=== PATIENT | male | born 1970 | race Caucasian/White ===

== ENCOUNTER 2016-11-26 16:06 | Emergency (ER) | payer SELFPAY ==
[2016-11-26 16:07] VITALS: BMI 27.7
[2016-11-26 16:41] VITALS: BP 121/74; PULSE 70; RESP 16; TEMP 98.3; O2SAT 99
[2016-11-26] MEDS ORDERED: Lidocaine 2% Inj (20ml) ONE (17:46)
--- NOTE | 2016-11-26 19:00 | C.PDOC ---
History Of Present Illness 46 year old male presents to the ED for re-evaluation of right middle finger pain and swelling which gradually developed over the past 4 days. He states the pain is localized, gradually worsen. Patient admits, was just evaluated at [facility] prior to arrival and decided to sign out against medical advice because they did not have a hand specialist on-call. Pt sts, recived blood work, imaging and abx tx at [place]. Pt has discharge papers with him including Rx: Bactrim, keflex. Pt denies deformity to finger, weakness, sensorivascular deficits, known trauma/injury to affected area. Ambulate to Ed for evaluation, not in any apparent distress. Time Seen by Provider: 11/26/16 16:37 Chief Complaint (Nursing): Abnormal Skin Integrity History Per: Patient History/Exam Limitations: no limitations Onset/Duration Of Symptoms: Days (4), Gradual Current Symptoms Are (Timing): Still Present Location Of Injury: Right: Hand (middle finger) Quality Of Symptoms: Painful Additional History Per: Patient Past Medical History Reviewed: Historical Data, Nursing Documentation, Vital Signs Vital Signs: Last Vital Signs Temp 98.3 F 11/26/16 16:40 Pulse 70 11/26/16 16:40 Resp 16 11/26/16 16:40 BP 121/74 11/26/16 16:40 Pulse Ox 99 11/27/16 21:04 - Medical History PMH: CAD, HTN Surgical History: Appendectomy - [facility] Procedures IMMOBILIZ/WOUND ATTN NEC (03/06/02) INJECT/INFUSE NEC (06/26/12) OTHER APPENDECTOMY (11/19/04) OTHER NEUROPLASTY (04/06/98) Family History: States: Unknown Family Hx - Social History Hx Tobacco Use: Yes Hx Alcohol Use: Yes Hx Substance Use: Yes Review Of Systems Musculoskeletal: Positive for: Hand Pain (right middle finger) Neurological: Negative for: Weakness, Numbness Physical Exam - Physical Exam Appears: Non-toxic, No Acute Distress Skin: Normal Color, Warm, Dry Eye(s): bilateral: PERRL Extremity: Normal ROM, Capillary Refill (less than 2 seconds ), No Deformity, Other (significant edema, erythema and fluctuance to palmar aspect right 3rd distal phalanx. no proximal streaking ) Neurological/Psych: Oriented x3, Normal Speech, Normal Cognition, Normal Motor, Normal Sensation, Normal Reflexes ED Course And Treatment O2 Sat by Pulse Oximetry: 99 (on RA) Pulse Ox Interpretation: Normal Progress Note: Review records from patient's visit at [facility] earlier today. Patient had bloodwork done, received Vancomycin and underwent XR which showed no evidence of osteomyelitis. Case discussed with [id number] Dr. Lozano, who recommended incision and drainage of abscess with help of residential program worker. associate vice president was paged and evaluated patient at bedside. Resident discussed case with DR. Lozano over the phone and procedure expalined to resident. ABscess I&D performed by residential program worker. Post-procedural case was discussed with again, advised to take antibiotics prescribed pt at [facility] and is advised to follow up with Dr. Lozano on 11/28 for further evaluation. CXR ordered and reviewed. Patient received Abluterol INH, Zithromax PO, and Prednisone PO. On re-eval, pt is afebrile, hemodynamicaly stable. Non-toxic. Pt reports, " feels much better". Right hand: s/p I&D middle finger FAM mclean, no neurovascular deficits. WOund covered by request with sterile dressing. Pt advised to f/u with in 2 days for re-eval.and wound check. return to ED if unable to F/u with hand specialist or any worsening or new changes. Disposition Counseled Patient/Family Regarding: Diagnosis, Need For Followup - Disposition Referrals: Laura Lozano MD [Staff Provider] - Disposition: HOME/ ROUTINE Disposition Time: 18:58 Condition: STABLE Additional Instructions: TAKE MEDICATION ANTIBIOTIC THAT WAS GIVEN AT [facility] AND PRESCRIBED FOLLOW UP WITH DR. LOZANO ON Monday11/28/16 FOR FURTHER EVALUATION AND TREATMENT. RETURN TO ED AT ANY TIME IF ANY WORSENING OR NEW CHANGES. Instructions: Abscess (ED) Forms: [employer] (Chinese) - Clinical Impression Clinical Impression: Jonathan Mclean - PA / OSTEOPATHIC MEDICINE TEACHER / Resident Statement MD/DO has reviewed & agrees with the documentation as recorded. - Scribe Statement The provider has reviewed the documentation as recorded by the Scribe (Steffanie Guillen) All medical record entries made by the Scribe were at my direction and personally dictated by me. I have reviewed the chart and agree that the record accurately reflects my personal performance of the history, physical exam, medical decision making, and the department course for this patient. I have also personally directed, reviewed, and agree with the discharge instructions and disposition.
--- NOTE | 2016-12-08 14:14 | CP.PCM.CON ---
History of Present Illness - History of Present Illness History of Present Illness: Procedure note Hand Surgery- Dr. Graves Procedure - Incision and Drainage of right middle finger Resident - Estuardo Winchester PGY1 Attending - Dr. Graves Patient positioned appropriately, 5cc lidocaine without epinephrine was used as a local anesthetic nerve block. #11 blade scalpal used for single incision. Additional local anesthetic injected into surrounding viable tissue prior to blunt dissection of loculated adhesions. Copius drainage of pus (culture obtained). Wound was irrigated and wrapped in a sterile fashion without packing put in. Procedure tolerated without complications. Wound dressed with sterile 4x4 guaze, Krilex and paper tape. Past Patient History - Past Social History Smoking Status: Current Some Days Smoker - CARDIAC Hx Hypertension: Yes - PULMONARY Hx Respiratory Disorders: No - NEUROLOGICAL Hx Neurological Disorder: No - HEENT Hx HEENT Problems: No - RENAL Hx Chronic Kidney Disease: No - ENDOCRINE/METABOLIC Hx Endocrine Disorders: No - HEMATOLOGICAL/ONCOLOGICAL Hx Blood Disorders: No - INTEGUMENTARY Hx Dermatological Problems: No - MUSCULOSKELETAL/RHEUMATOLOGICAL Hx Musculoskeletal Disorders: No - GASTROINTESTINAL Other/Comment: AP - GENITOURINARY/GYNECOLOGICAL Hx Genitourinary Disorders: No - PSYCHIATRIC Hx Substance Use: Yes - SURGICAL HISTORY Hx Appendectomy: Yes - ANESTHESIA Hx Anesthesia: Yes Meds Allergies/Adverse Reactions: Allergies Allergy/AdvReac Type Severity Reaction Status Date / Time No Known Allergies Allergy Verified 11/26/16 16:41 Results - Vital Signs Recent Vital Signs: Last Vital Signs Temp 98.3 F 11/26/16 16:40 Pulse 70 11/26/16 16:40 Resp 16 11/26/16 16:40 BP 121/74 11/26/16 16:40 Pulse Ox 99 11/27/16 21:05
== END 2016-11-26 19:49 | disposition home or self-care (01) ==
LOC: C.ER 16:06
DX: L03.011 Cellulitis of right finger (principal); L02.511 Cutaneous abscess of right hand

== ENCOUNTER 2016-12-07 06:47 | Emergency (ER) | payer SELFPAY ==
[2016-12-07 06:47] VITALS: BMI 27.7
[2016-12-07 06:57] VITALS: RESP 18
[2016-12-07] MEDS ORDERED: Lidocaine 1% Inj (20ml) ONE (07:14)
[2016-12-07] MEDS ORDERED: Lidocaine 1% Inj (20ml) INFIL ONE (07:25)
[2016-12-07] MEDS ORDERED: Tmp-Smz 800 mg-160 mg DS Tab PO STA (07:43)
[2016-12-07] MEDS ORDERED: Tmp-Smz 800 mg-160 mg DS Tab ONE (07:49)
--- NOTE | 2016-12-07 07:52 | C.PDOC ---
History Of Present Illness 46 y/o male presents to ED with complaints of recurrent swelling and pain to right middle finger. Patient was seen at ED on 11/26/16 for abscess to right middle digit and had an I&D procedure. Patient was discharged with Bactrim that was not filled as per patient. Patient denies fever, numbness or any other complaints at this time. Time Seen by Provider: 12/07/16 07:06 Chief Complaint (Nursing): Finger,Hand,&Wrist History Per: Patient History/Exam Limitations: no limitations Onset/Duration Of Symptoms: Days Current Symptoms Are (Timing): Still Present Quality: "Pain" Past Medical History Reviewed: Historical Data, Nursing Documentation, Vital Signs Vital Signs: Last Vital Signs Temp 97.8 F 12/07/16 06:55 Pulse 63 12/07/16 06:55 Resp 18 12/07/16 06:55 BP 147/82 12/07/16 06:55 Pulse Ox 99 12/07/16 08:19 - Medical History PMH: CAD, HTN Surgical History: Appendectomy - [facility] Procedures IMMOBILIZ/WOUND ATTN NEC (03/06/02) INJECT/INFUSE NEC (06/26/12) OTHER APPENDECTOMY (11/19/04) OTHER NEUROPLASTY (04/06/98) Family History: States: No Known Family Hx - Social History Hx Tobacco Use: Yes Hx Alcohol Use: Yes Hx Substance Use: No Review Of Systems Constitutional: Negative for: Fever, Chills Respiratory: Negative for: Shortness of Breath Musculoskeletal: Positive for: Hand Pain Skin: Negative for: Rash Neurological: Negative for: Weakness, Numbness Physical Exam - Physical Exam Appears: Non-toxic, No Acute Distress Skin: Warm, Dry, Other (Tense fluctuant abscess to the ulnar aspect of right middle digit. +pain and tender to palpation) Head: Atraumatic, Normacephalic Oral Mucosa: Moist Neck: Normal ROM, Supple Chest: Symmetrical Extremity: Capillary Refill (<2 seconds), No Deformity Extremity: Bilateral: Normal ROM Pulses: Left Radial: Normal, Right Radial: Normal Neurological/Psych: Oriented x3, Normal Motor, Normal Sensation ED Course And Treatment O2 Sat by Pulse Oximetry: 99 (RA) Pulse Ox Interpretation: Normal - Incision & Drainage Of Abscess Anesthesia: Lidocaine 1% Prep Used: Sterile Water, Betadine Procedure: Incised W/Scalpel Blade#: (#11 blade- 1cm incision made to fluctuant area of right middle finger), Drained Pus, Packed W/Gauze (and sterile dressing applied), Cultures Obtained And Sent To Lab Medical Decision Making Medical Decision Making: Impression: Digital Abscess Plan: I&D procedure tolerated will by patient Patient advised to follow up with community clinic tomorrow for removal of packing and wound check. Patient discharged with Bactrim prescription and given 5$ to fill prescription. Disposition - Disposition Referrals: [facility] [Outside] Disposition: HOME/ ROUTINE Disposition Time: 08:22 Condition: GOOD Additional Instructions: go to clinic tomorrow for wound check and packing removal Prescriptions: Sulfamethoxazole/Trimethoprim [Bactrim DS 800 mg-160 mg] 1 tab PO BID #14 tab Instructions: Abscess (ED) Forms: [employer] (Omani) Print Language: CHINESE - Clinical Impression Clinical Impression: Abscess - Scribe Statement The provider has reviewed the documentation as recorded by the Maryibamadou Burden All medical record entries made by the Maryibamadou were at my direction and personally dictated by me. I have reviewed the chart and agree that the record accurately reflects my personal performance of the history, physical exam, medical decision making, and the department course for this patient. I have also personally directed, reviewed, and agree with the discharge instructions and disposition.
[2016-12-07 08:30] VITALS: BP 116/74; PULSE 74; TEMP 78; O2SAT 98
== END 2016-12-07 08:35 | disposition home or self-care (01) ==
LOC: C.ER 06:47
DX: L02.511 Cutaneous abscess of right hand (principal)

== ENCOUNTER 2016-12-08 14:49 | Emergency (ER) | payer MEDICAID ==
[2016-12-08 14:49] VITALS: BMI 27.7
[2016-12-08 14:55] VITALS: BP 118/71; TEMP 97.8; O2SAT 98
--- NOTE | 2016-12-08 15:25 | C.PDOC ---
History Of Present Illness 46 y/o male presents to ED for wound check s/p I&D to right 3rd finger. Patient had initial I&D on 10/3016 and repeated on 12/07. Patient states he was advised to follow up in clinic today "but no one was answering so i came to ED". Patient is noncompliant with antibiotics given on 11/26 but states he has filled prescriptions since ED visit on 12/07 and had first dose yesterday. No new symptoms since prior evaluation or other complaints at this time. FOR WOUND CHECK S/P I&D R 3 FINGER. INITIAL I&D 11/26/16 AND REPEATED 12/07. PS WAS ADVISED TO FU IN CLINIC TODAY "BUT NO ONE WAS ANSWERING SO I CAME TO THE ER ". NO NEW SX SINCE PRIOR EVAL. PT NONCOMPLIANT W ABX RX GIVEN ON 11/26 BUT STATES HAS FILLED RX SINCE ER VISIT 12/07, SP 1ST DOSE YESTERDAY EXAM NAD SKIN R [address] PAD R 3 FINGER W PERSIST PURULENT DC. NO LYMPHANGITIS, ERYTHEMA NEURO INTACT Time Seen by Provider: 12/08/16 15:10 Chief Complaint (Nursing): Wound Check History Per: Patient History/Exam Limitations: no limitations Onset/Duration Of Symptoms: Days Ago Current Symptoms Are (Timing): Still Present Location Of Injury: Right: Hand Quality Of Symptoms: denies: Painful, Swollen Past Medical History Reviewed: Historical Data, Nursing Documentation, Vital Signs Vital Signs: Last Vital Signs Temp 97.8 F 12/08/16 14:54 Pulse 64 12/08/16 14:54 Resp 20 12/08/16 14:54 BP 118/71 12/08/16 14:54 Pulse Ox 98 12/08/16 16:02 - Medical History PMH: CAD, HTN Surgical History: Appendectomy - [facility] Procedures IMMOBILIZ/WOUND ATTN NEC (03/06/02) INJECT/INFUSE NEC (06/26/12) OTHER APPENDECTOMY (11/19/04) OTHER NEUROPLASTY (04/06/98) Family History: States: No Known Family Hx - Social History Hx Tobacco Use: Yes Hx Alcohol Use: Yes Hx Substance Use: No - Immunization History Hx Tetanus Toxoid Vaccination: No Hx Influenza Vaccination: No Hx Pneumococcal Vaccination: No Review Of Systems Constitutional: Negative for: Fever, Chills Gastrointestinal: Negative for: Nausea, Vomiting Musculoskeletal: Negative for: Hand Pain Skin: Negative for: Rash Neurological: Negative for: Weakness, Numbness Physical Exam - Physical Exam Appears: No Acute Distress Skin: Warm, Dry, Other (Right 3rd finger packing in place, PAD right finger w/ persistent purulent discharge. No lymphangitis, No erythema) Head: Normacephalic Eye(s): bilateral: Normal Inspection Oral Mucosa: Moist Neck: Normal ROM, Supple Chest: Symmetrical Extremity: Normal ROM, Capillary Refill (<2 seconds), No Deformity Pulses: Left Radial: Normal, Right Radial: Normal Neurological/Psych: Oriented x3, Normal Motor, Normal Sensation ED Course And Treatment O2 Sat by Pulse Oximetry: 98 (RA) Pulse Ox Interpretation: Normal Progress - Re-Evaluation Re-evaluation Note: 12/08/16 15:25 D/W SURG RESIDENT DR OLVERA will EVAL IN ER 12/08/16 16:52 S/P RESIDENT WOUND REEXPLORATION AND REPACKING. INFO GIVEN FOR KALINA LOZANO AND LEILANI FOR OFFICE FU. - Data Reviewed Data Reviewed: Old records Disposition Counseled Patient/Family Regarding: Diagnosis, Need For Followup - Disposition Referrals: Clinic,Med Surg [Primary Care Provider] - Terrence Collins MD [Staff Provider] - Laura Lozano MD [Staff Provider] - Disposition: HOME/ ROUTINE Disposition Time: 16:53 Condition: IMPROVED Instructions: Abscess Follow-up (ED) Forms: [facility] (Prydeinig) - Clinical Impression Clinical Impression: Abscess re-check - Scribe Statement The provider has reviewed the documentation as recorded by the Scribamadou Burden All medical record entries made by the Maryibamadou were at my direction and personally dictated by me. I have reviewed the chart and agree that the record accurately reflects my personal performance of the history, physical exam, medical decision making, and the department course for this patient. I have also personally directed, reviewed, and agree with the discharge instructions and disposition.
[2016-12-08] MEDS ORDERED: Lidocaine 1% Inj (20ml) ONE (16:10)
[2016-12-08 17:17] VITALS: PULSE 68; RESP 18
== END 2016-12-08 17:00 | disposition home or self-care (01) ==
LOC: C.ER 14:49 → SUPCPDRO 14:49 → C.ER 17:00
DX: Z48.00 Encounter for change or removal of nonsurgical wound dressing (principal)

== ENCOUNTER 2016-12-09 15:39 | Observation (INO) | payer MEDICAID ==
[2016-12-09 15:40] VITALS: BMI 27.7
[2016-12-09] MEDS ORDERED: Lidocaine 2% Inj (20ml) INFIL ONE (16:11)
[2016-12-09] MEDS ORDERED: Lidocaine 2% Inj (20ml) ONE (16:14)
--- NOTE | 2016-12-09 16:33 | C.PDOC ---
History Of Present Illness 46 yo male return to ED for re-evaluation of Right middle finger abscess/felon that was I&D here in ED few times: , 12/07 and 12/08. Pt reports, pain is worsen since yesterday. Pt sts, went to clinic and was sent to ED for admission " fail outpt treatment". Pt admits, take abx for past 2 days only, was non-complaint before. Otherwise, pt denies fever, chills, denies weakness, sensory or vascular deficits to Right hand. Ambulate to Ed appears in pain. Time Seen by Provider: 12/09/16 15:57 Chief Complaint (Nursing): Finger,Hand,&Wrist History Per: Patient History/Exam Limitations: no limitations Past Medical History Reviewed: Historical Data, Nursing Documentation, Vital Signs Vital Signs: Last Vital Signs Temp 99.1 F 12/09/16 19:14 Pulse 56 L 12/09/16 19:14 Resp 20 12/09/16 19:14 BP 119/77 12/09/16 19:14 Pulse Ox 96 12/09/16 19:14 - Medical History PMH: CAD, HTN Surgical History: Appendectomy - [facility] Procedures IMMOBILIZ/WOUND ATTN NEC (03/06/02) INJECT/INFUSE NEC (06/26/12) OTHER APPENDECTOMY (11/19/04) OTHER NEUROPLASTY (04/06/98) Family History: States: No Known Family Hx - Social History Hx Tobacco Use: Yes Hx Alcohol Use: Yes Hx Substance Use: No - Immunization History Hx Tetanus Toxoid Vaccination: No Hx Influenza Vaccination: No Hx Pneumococcal Vaccination: No Review Of Systems Except As Marked, All Systems Reviewed And Found Negative. Constitutional: Negative for: Fever, Chills Skin: Positive for: Other ((+) Right middle finger abscess) Neurological: Negative for: Weakness, Numbness Physical Exam - Physical Exam Appears: Well, No Acute Distress Skin: Normal Color, Warm, Dry, Other (see extr exam) Eye(s): bilateral: PERRL Nose: No Discharge Oral Mucosa: Moist Throat: No Erythema, No Exudate Neck: Supple Cardiovascular: Rhythm Regular Respiratory: No Decreased Breath Sounds, No Accessory Muscle Use, No Stridor, No Wheezing Gastrointestinal/Abdominal: Soft, No Tenderness, No Distention, No Guarding Back: No CVA Tenderness, No Vertebral Tenderness Extremity: Normal ROM (Right hand), Tenderness (severe tenderness around finger pulp insicion Right 3rd distal phalanx with inserted packin, dry, clean, no draining, mod soft tissue edema. No lymphagitis, no erythema.), Capillary Refill (less than 2sec to Right middle finger), No Deformity Neurological/Psych: Oriented x3, Normal Speech, Normal Cognition, Normal Motor, Normal Sensation, Normal Reflexes ED Course And Treatment - Laboratory Results Result Diagrams: 12/09/16 17:17 12/09/16 17:17 O2 Sat by Pulse Oximetry: 100 (RA) Pulse Ox Interpretation: Normal Progress Note: medihoney. Case discussed with , [id number], who was involved in pt care initially on 11/26/16, unfortunately pt never follow up with . As per recommendation, Right 3rd finger soaked, packing removed, wound irrigated, closed with sterile dressing. Blood work order, abx given.Admission to Hospital service OBS with in patent consult recommend. Hospitalist aware of admission. Medical Decision Making Medical Decision Making: PLAN: * X-Ray - Right hand, 3rd Digit * CBC * BMP * Solumedrol IVP * Rocephin IVPB * Vancomysin IVPB * Sodium Chloride IV Disposition - Disposition Disposition: HOSPITALIZED Disposition Time: 17:33 Condition: STABLE - Clinical Impression Clinical Impression: Felon - PA / INSTRUCTIONAL SERVICES SPECIALIST / Resident Statement MD/DO has reviewed & agrees with the documentation as recorded. - Scribe Statement The provider has reviewed the documentation as recorded by the Scribe Marj Kat All medical record entries made by the Maryuri were at my direction and personally dictated by me. I have reviewed the chart and agree that the record accurately reflects my personal performance of the history, physical exam, medical decision making, and the department course for this patient. I have also personally directed, reviewed, and agree with the discharge instructions and disposition.
[2016-12-09] MEDS ORDERED: Sodium Chloride 0.9% 500 ML IV ONE (16:39)
[2016-12-09] MEDS ORDERED: cefTRIAXone IV 1 gm in Dextros 50 ML IVPB ONE (16:58)
[2016-12-09] MEDS ORDERED: Vancomycin 1 GM 1 GM/250 ML BAG IVPB ONE (17:19)
[2016-12-09 17:24] LABS: BASO # 0.1 K/uL (0.0-0.2); BASO % 0.9 % (0.0-2.0); EOS # 0.3 K/uL (0.0-0.7); EOS % 3.5 % (0.0-4.0); HEMATOCRIT 41.3 % (35.0-51.0); LYMPH % 26.3 % (20.0-40.0); MEAN CELL VOLUME 92.1 fL (80.0-94.0); MEAN CORPUSCULAR HGB CONC 33.7 g/dL (33.0-37.0); MEAN PLATELET VOLUME 9.7 fL (7.2-11.7); MONO # 0.5 K/uL (0.0-0.8); MONO % 6.8 % (0.0-10.0); RED CELL DISTRIBUTION WIDTH 11.8 % (11.5-14.5); WHITE BLOOD COUNT 7.5 K/uL (4.8-10.8)
[2016-12-09 17:29] LABS: CHLORIDE 100 mmol/L (98-107); POTASSIUM 4.1 mmol/L (3.6-5.2); SODIUM 134 mmol/L (132-148)
[2016-12-09 17:32] LABS: BLOOD UREA NITROGEN 22 mg/dL (9-20); CALCIUM 9.2 mg/dl (8.6-10.4); CARBON DIOXIDE 26 mmol/L (22-30); GFR AFRICAN-AMERICAN > 60; GLUCOSE,RANDOM 79 mg/dL (75-110)
--- NOTE | 2016-12-09 18:04 | CP.PCM.CON ---
History of Present Illness - History of Present Illness History of Present Illness: Hand Surgery Dr. Graves 46 y/o M w/ PMHx of HTN, CAD, non-compliance presents to the ED c/o R middle finger swelling and pain. Pt was seen in ED on 11/26 for felon which was I&D. Pt was sent home w/ abx and instructions to follow up w/ Dr. Graves in the office. Pt admits to not taking the antibiotics as prescribed and making a follow up appointment. Pt presents again to the ED on 12/07 w/ worsening felon. It was I& D in ED and packing was placed w/in wound. Pt was again sent home w/ PO Abx. Pt returned to the ED on 12/08 for worsening pain. Pt was unable to make appoint w / [facility] and had not yet started the abx prescribed by ED. Incision was extended and explored for further drainage. Finger was repacked and pt was instructed to take abx as prescribed. Pt was also provided the numbers for the clinic and hand surgeons in the area. Today pt presents from [facility]. Pain has worsened since yesterday. Pt unable to move finger due to pain. Pt denies F/C, CP, SOB, N/V. PMHx: see above Meds: reviewed in chart NKDA PSHx: appendectomy SHx: admits to tobacco use and social EtOH. denies drug use FHx: denies Review of Systems - Review of Systems All systems: reviewed and no additional remarkable complaints except (see HPI) Past Patient History - Past Social History Smoking Status: Current Some Days Smoker - CARDIAC Hx Hypertension: Yes - PULMONARY Hx Respiratory Disorders: No - NEUROLOGICAL Hx Neurological Disorder: No - HEENT Hx HEENT Problems: No - RENAL Hx Chronic Kidney Disease: No - ENDOCRINE/METABOLIC Hx Endocrine Disorders: No - HEMATOLOGICAL/ONCOLOGICAL Hx Blood Disorders: No - INTEGUMENTARY Hx Dermatological Problems: No - MUSCULOSKELETAL/RHEUMATOLOGICAL Hx Musculoskeletal Disorders: No - GASTROINTESTINAL Other/Comment: AP - GENITOURINARY/GYNECOLOGICAL Hx Genitourinary Disorders: No - PSYCHIATRIC Hx Substance Use: No - SURGICAL HISTORY Hx Appendectomy: Yes - ANESTHESIA Hx Anesthesia: Yes Hx Anesthesia Reactions: No Meds Allergies/Adverse Reactions: Allergies Allergy/AdvReac Type Severity Reaction Status Date / Time No Known Allergies Allergy Verified 12/09/16 15:45 - Medications Medications: Current Medications Vancomycin HCl 1 gm/ Sodium (Chloride) 250 mls @ 166.7 mls/hr IVPB STAT STA Stop: 12/09/16 18:09 Physical Exam - Constitutional Appears: Non-toxic, No Acute Distress - Head Exam Head Exam: NORMAL INSPECTION - Eye Exam Eye Exam: Normal appearance - ENT Exam ENT Exam: Mucous Membranes Moist - Respiratory Exam Respiratory Exam: NORMAL BREATHING PATTERN. absent: Accessory Muscle Use, Respiratory Distress - GI/Abdominal Exam GI & Abdominal Exam: Soft. absent: Distended - Extremities Exam Additional comments: severe TTP of R 3rd finger pulp. incision w/ packing - c/d/i (+)induration, (-)erythema, - Neurological Exam Neurological exam: Alert, Oriented x3 - Psychiatric Exam Psychiatric exam: Normal Affect, Normal Mood - Skin Skin Exam: Dry, Normal Color, Warm Results - Vital Signs Recent Vital Signs: Last Vital Signs Temp 98.5 F 12/09/16 17:20 Pulse 62 12/09/16 17:20 Resp 18 12/09/16 17:20 BP 116/72 12/09/16 17:20 Pulse Ox 100 12/09/16 17:33 - Labs Result Diagrams: 12/09/16 17:17 12/09/16 17:17 Labs: Laboratory Results - last 24 hr 12/09/16 12/09/16 17:17 17:17 WBC 7.5 RBC 4.48 Hgb 13.9 Hct 41.3 MCV 92.1 MCH 31.0 MCHC 33.7 RDW 11.8 Plt Count 191 MPV 9.7 Neut % (Auto) 62.5 Lymph % (Auto) 26.3 [place] % (Auto) 6.8 Eos % (Auto) 3.5 Baso % (Auto) 0.9 Neut # 4.7 Lymph # 2.0 [place] # 0.5 Eos # 0.3 Baso # 0.1 Sodium 134 Potassium 4.1 Chloride 100 Carbon Dioxide 26 Anion Gap 13 BUN 22 H Creatinine 1.0 Est GFR ( Amer) > 60 Est GFR (Non-Af Amer) > 60 Random Glucose 79 Calcium 9.2 - Imaging and Cardiology hand x-ray Status: Image reviewed by me Assessment & Plan - Assessment and Plan (Free Text) Assessment: 46 y/o M w/ R 3rd finger felon - IV Abx - Pain management - warm betadine soaks TID - f/u xray report - dressings PRN - cont medical managemet Further recs per Dr. Ely Esteban DO PGY2
[2016-12-09] MEDS ORDERED: Oxycodone/Acetaminophen 5/325 mg Tab PO PRN (18:24)
[2016-12-09] MEDS ORDERED: Morphine 4 MG/ML VIAL IV PRN (18:24)
[2016-12-09] MEDS ORDERED: Vancomycin 1 gm/NS 200 ml 1 GM/200 ML BAG IVPB SCH (19:00)
--- NOTE | 2016-12-09 19:39 | CP.PCM.HP ---
Addendum entered and electronically signed by Nargis Camacho DO 12/09/16 21:34: injury on this third finger of the right hand Physical exam: MSK: muscle strength +5/5 upper and lower extremities. Patient is able to move his middle finger, but admits to difficulty moving. due to swelling/pain sensations intact on all extremities, with numbness and tingling or "burning" feeling of right hand near site of injury due to nerve block in ED Third finger of right hand is bandages with some breakthrough bleeding follow up Hand Surgery consult recommendations Original Note: <Nargis Camacho - Last Filed: 12/09/16 20:29> History of Present Illness - History of Present Illness History of Present Illness: History and Physical for Hospitalist Service CC: Third finger pain, infection 46 M presents with third finger, which has been hurting for one week. Patient states he had a surgery three times for the finger infection with packing Patient showed pictures of the finger after the surgery and before the surgery. Patient denies any known trauma to the finger. Patient doesn't remember cutting the finger. Upon review of history, it was noted that patient was given a finger block in the ED about 6pm. Patient had only taken one dose of antibiotics and has been non-compliant with treatment. Patient denies Fever, chills, nausea, vomiting, decreased movement of hand. 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 Patient is homeless. Patient admits to ETOH use and smoking history, but denies illicit drug use PSH: appendectomy, right forearm tendon repair with "micro laser therapy" 10 years ago and left ankle repair with bone removal (20 years ago) Medications: none except for antibiotics Present on Admission - Present on Admission Any Indicators Present on Admission: No History of DVT/PE: No History of Uncontrolled Diabetes: No Urinary Catheter: No Decubitus Ulcer Present: No Past Patient History - Past Social History Smoking Status: Current Some Days Smoker - CARDIAC Hx Hypertension: Yes - PULMONARY Hx Respiratory Disorders: No - NEUROLOGICAL Hx Neurological Disorder: No - HEENT Hx HEENT Problems: No - RENAL Hx Chronic Kidney Disease: No - ENDOCRINE/METABOLIC Hx Endocrine Disorders: No - HEMATOLOGICAL/ONCOLOGICAL Hx Blood Disorders: No - INTEGUMENTARY Hx Dermatological Problems: No - MUSCULOSKELETAL/RHEUMATOLOGICAL Hx Musculoskeletal Disorders: No - GASTROINTESTINAL Other/Comment: AP - GENITOURINARY/GYNECOLOGICAL Hx Genitourinary Disorders: No - PSYCHIATRIC Hx Substance Use: No - SURGICAL HISTORY Hx Appendectomy: Yes - ANESTHESIA Hx Anesthesia: Yes Hx Anesthesia Reactions: No Meds Allergies/Adverse Reactions: Allergies Allergy/AdvReac Type Severity Reaction Status Date / Time No Known Allergies Allergy Verified 12/09/16 15:45 Physical Exam - Eye Exam Eye Exam: EOMI, Normal appearance - ENT Exam ENT Exam: Mucous Membranes Moist - Respiratory Exam Respiratory Exam: NORMAL BREATHING PATTERN. absent: Accessory Muscle Use, Respiratory Distress - Cardiovascular Exam Cardiovascular Exam: REGULAR RHYTHM, +S1, +S2 - GI/Abdominal Exam GI & Abdominal Exam: Normal Bowel Sounds - Extremities Exam Extremities exam: Positive for: full ROM. Negative for: pedal edema - Back Exam Back exam: NORMAL INSPECTION - Neurological Exam Neurological exam: Alert, Normal Gait, Oriented x3 - Psychiatric Exam Psychiatric exam: Normal Affect, Normal Mood - Skin Skin Exam: Dry, Warm Results - Vital Signs Recent Vital Signs: Last Vital Signs Temp 97.9 F 12/09/16 18:40 Pulse 49 L 12/09/16 18:40 Resp 18 12/09/16 18:40 BP 105/66 12/09/16 18:40 Pulse Ox 99 12/09/16 18:40 - Labs Result Diagrams: 12/09/16 17:17 12/09/16 17:17 Labs: Laboratory Results - last 24 hr 12/09/16 12/09/16 17:17 17:17 WBC 7.5 RBC 4.48 Hgb 13.9 Hct 41.3 MCV 92.1 MCH 31.0 MCHC 33.7 RDW 11.8 Plt Count 191 MPV 9.7 Neut % (Auto) 62.5 Lymph % (Auto) 26.3 [place] % (Auto) 6.8 Eos % (Auto) 3.5 Baso % (Auto) 0.9 Neut # 4.7 Lymph # 2.0 [place] # 0.5 Eos # 0.3 Baso # 0.1 Sodium 134 Potassium 4.1 Chloride 100 Carbon Dioxide 26 Anion Gap 13 BUN 22 H Creatinine 1.0 Est GFR ( Amer) > 60 Est GFR (Non-Af Amer) > 60 Random Glucose 79 Calcium 9.2 Assessment & Plan - Assessment and Plan (Free Text) Assessment: Noncompliant history monitor vitals accuchecks achs Right third Finger infection Monitor Vitals AM CBC AM CMP Zosyn 3.376gm Q8H Vanc 1gm IVPB QD Probiotics Hand Surgery Consult: Dr. Graves f/u hand XRAY Prophylaxis SCD Protonix 40mg IVPB discussed with Dr. Carlos Camacho DO PGY1 - Date & Time Date: 12/09/16 Time: 19:43 <Alicia Gonzalez V - Last Filed: 12/10/16 20:38> Results - Vital Signs Recent Vital Signs: Last Vital Signs Temp 98.1 F 12/10/16 07:00 Pulse 50 L 12/10/16 07:00 Resp 20 12/10/16 07:00 BP 108/70 12/10/16 07:00 Pulse Ox 98 12/10/16 07:00 - Labs Result Diagrams: 12/10/16 07:03 12/10/16 07:03 Labs: Laboratory Results - last 24 hr 12/09/16 12/09/16 12/10/16 17:17 17:17 06:41 WBC 7.5 RBC 4.48 Hgb 13.9 Hct 41.3 MCV 92.1 MCH 31.0 MCHC 33.7 RDW 11.8 Plt Count 191 MPV 9.7 Neut % (Auto) 62.5 Lymph % (Auto) 26.3 [place] % (Auto) 6.8 Eos % (Auto) 3.5 Baso % (Auto) 0.9 Neut # 4.7 Lymph # 2.0 [place] # 0.5 Eos # 0.3 Baso # 0.1 Neutrophils % (Manual) Band Neutrophils % Lymphocytes % (Manual) Monocytes % (Manual) Platelet Estimate RBC Morphology PT INR Sodium 134 Potassium 4.1 Chloride 100 Carbon Dioxide 26 Anion Gap 13 BUN 22 H Creatinine 1.0 Est GFR ( Amer) > 60 Est GFR (Non-Af Amer) > 60 POC Glucose (mg/dL) 111 H Random Glucose 79 Calcium 9.2 Total Bilirubin AST ALT Alkaline Phosphatase Total Protein Albumin Globulin Albumin/Globulin Ratio 12/10/16 12/10/16 12/10/16 07:03 07:03 11:41 WBC 11.0 H RBC 4.46 Hgb 13.8 Hct 41.3 MCV 92.5 MCH 31.0 MCHC 33.5 RDW 11.7 Plt Count 187 MPV 9.9 Neut % (Auto) 85.7 H Lymph % (Auto) 9.5 L [place] % (Auto) 4.6 Eos % (Auto) 0.0 Baso % (Auto) 0.2 Neut # 9.5 H Lymph # 1.0 [place] # 0.5 Eos # 0.0 Baso # 0.0 Neutrophils % (Manual) 85 H Band Neutrophils % 1 Lymphocytes % (Manual) 9 L Monocytes % (Manual) 5 Platelet Estimate Normal RBC Morphology Normal PT INR Sodium 134 Potassium 4.4 Chloride 102 Carbon Dioxide 21 L Anion Gap 15 BUN 16 Creatinine 0.9 Est GFR ( Amer) > 60 Est GFR (Non-Af Amer) > 60 POC Glucose (mg/dL) 88 Random Glucose 106 Calcium 8.8 Total Bilirubin 0.9 AST 32 ALT 39 Alkaline Phosphatase 57 Total Protein 6.7 Albumin 3.6 Globulin 3.1 Albumin/Globulin Ratio 1.1 12/10/16 12:44 WBC RBC Hgb Hct MCV MCH MCHC RDW Plt Count MPV Neut % (Auto) Lymph % (Auto) [place] % (Auto) Eos % (Auto) Baso % (Auto) Neut # Lymph # [place] # Eos # Baso # Neutrophils % (Manual) Band Neutrophils % Lymphocytes % (Manual) Monocytes % (Manual) Platelet Estimate RBC Morphology PT 11.5 INR 1.0 Sodium Potassium Chloride Carbon Dioxide Anion Gap BUN Creatinine Est GFR ( Amer) Est GFR (Non-Af Amer) POC Glucose (mg/dL) Random Glucose Calcium Total Bilirubin AST ALT Alkaline Phosphatase Total Protein Albumin Globulin Albumin/Globulin Ratio Attending/Attestation - Attestation I have personally seen and examined this patient.: Yes I have fully participated in the care of the patient.: Yes I have reviewed all pertinent clinical information: Yes Notes (Text): This is late computer entry for 12/09/16. Patient seen, examined, and case discussed with day-time resident. Patient seen in the ED Hallway Bed 8 at approximately 6:20PM. Patient sent up from the [facility] for worsening right middle finger pain. patient was seen in the ED multiple times over the past two weeks by the surgery resident for the finger. Patient left on 12/08 with PO abx, completed a day's worth, but reports persistent finger pain that he cannot bear, which prompted him to come back to the hospital. Patient complete nerve block performed by surgical elastic knitter for 3rd right middle finger. Radial pulses palpable b/l hands. Sensation in intact bilateral hands except for 3rd right middle finger secondary to nerve block. Hand surgeon contacted by the emergency room will see the tomorrow. Assessment/Plan 1) Right Third Finger Felon * Hand surgery consult (Dr. Graves) on board * Per surgery, ordered for hand xray * Patient ordered for Zosyn 3.375 IV Q 8H and Vancomycin 1 gram IVPB Q Daily * Labs for the morning 2) Prophylaxis * SCDs b/l * GI ppx: Protonix 40mg IV daily
[2016-12-09] MEDS: Piperacillin/Tazobact 3.375 GM in Sodium Chloride 100 ML IVPB SCH (20:29)
[2016-12-10] MEDS: Piperacillin/Tazobact 3.375 GM in Sodium Chloride 100 ML IVPB SCH (04:06)
[2016-12-10 07:16] LABS: BASO % 0.2 % (0.0-2.0); HEMATOCRIT 41.3 % (35.0-51.0); LYMPH % 9.5 % (20.0-40.0); MEAN CELL VOLUME 92.5 fL (80.0-94.0); MEAN CORPUSCULAR HGB CONC 33.5 g/dL (33.0-37.0); MEAN PLATELET VOLUME 9.9 fL (7.2-11.7); MONO # 0.5 K/uL (0.0-0.8); MONO % 4.6 % (0.0-10.0); PLATELET COUNT 187 K/uL (130-400); RED CELL DISTRIBUTION WIDTH 11.7 % (11.5-14.5)
[2016-12-10 08:00] LABS: CHLORIDE 102 mmol/L (98-107); POTASSIUM 4.4 mmol/L (3.6-5.2); SODIUM 134 mmol/L (132-148)
[2016-12-10 08:03] LABS: ALB/GLOB RATIO 1.1 (1.0-2.1); ALKALINE PHOSPHATASE 57 U/L (38-126); ALT/SGPT 39 U/L (21-72); AST/SGOT 32 U/L (17-59); BILIRUBIN,TOTAL 0.9 mg/dL (0.2-1.3); BLOOD UREA NITROGEN 16 mg/dL (9-20); CALCIUM 8.8 mg/dl (8.6-10.4); CARBON DIOXIDE 21 mmol/L (22-30); GFR AFRICAN-AMERICAN > 60; GLUCOSE,RANDOM 106 mg/dL (75-110); TOTAL PROTEIN 6.7 g/dL (6.3-8.3)
--- NOTE | 2016-12-10 08:31 | CP.PCM.PN ---
<Dylan Pro - Last Filed: 12/10/16 13:49> Subjective - Date & Time of Evaluation Date of Evaluation: 12/10/16 Time of Evaluation: 08:30 - Subjective Subjective: PGY-[address] Gonzalez's Service: Pt seen and examined at bedside. Nursing reports no acute events overnight. Pt reports pain in the finger that has been improved by his pain medication. He is for MRI today per Dr. Graves to help differentiate cause of his finger tumor. He denies any other acute complaints. He denies fever, chills, headache, abdominal pain, N/V. Objective - Vital Signs/Intake and Output Vital Signs (last 24 hours): Temp Pulse Resp BP Pulse Ox 98.1 F 50 L 20 108/70 98 12/10/16 07:00 12/10/16 07:00 12/10/16 07:00 12/10/16 07:00 12/10/16 07:00 Intake and Output: 12/10/16 12/10/16 06:59 18:59 Intake Total 790 Balance 790 - Medications Medications: Current Medications Piperacillin Sod/Tazobactam (Sod 3.375 gm/ Sodium Chloride) 100 mls @ 200 mls/ hr IVPB Q8H [facility] Last Admin: 12/10/16 04:06 Dose: 200 mls/hr Vancomycin/Sodium Chloride (Vancocin) 1 gm in 200 mls @ 133 mls/hr IVPB Q24H [facility] Stop: 12/15/16 20:01 Ketorolac Tromethamine (Toradol) 30 mg IVP Q6 [facility] Last Admin: 12/10/16 05:36 Dose: 30 mg Morphine Sulfate (Morphine) 4 mg IV Q4 PRN PRN Reason: severe pain Oxycodone/Acetaminophen (Percocet 5/325 Mg Tab) 1 tab PO Q4H PRN PRN Reason: Pain, moderate (4-7) Stop: 12/12/16 18:25 Pantoprazole Sodium (Protonix Inj) 40 mg IVP DAILY [facility] Saccharomyces Boulardii (Florastor) 250 mg PO BID [facility] - Labs Labs: 12/10/16 07:03 12/10/16 07:03 Assessment and Plan - Assessment and Plan (Free Text) Plan: Right third Finger infection Pt reports persistent painful finger tumor x several weeks - multiple ED visits for packing; non-compliance with antibiotics or follow-up Hand XRAY (12/09/16): No evidence of acute fracture of dislocation. No evidence of radiopaque foreign body. Soft tissue swelling (see full report) f/u MRI Hand Surgery Consult: Dr. Graves - recommend MRI w. contrast - DDX: glomus tumor, vs. giant cell tumor, vs. ganglion cyst - Discontinue Vancomycin and Zosyn - DC home w office follow up. No emergent surgery. No antibiotics as outpatient. Toradol 30mg IV q6h Percocet 1 tab PO Q4h PRN Pre-op Workup f/u CXR, EKG, INR Prophylaxis SCD Protonix 40mg IVPB discussed with Dr. Carlos Pro PGY2 <Alicia Gonzalez V - Last Filed: 12/10/16 20:45> Objective - Vital Signs/Intake and Output Vital Signs (last 24 hours): Temp Pulse Resp BP Pulse Ox 98.6 F 55 L 18 113/67 100 12/10/16 15:33 12/10/16 15:33 12/10/16 15:33 12/10/16 15:33 12/10/16 15:33 - Medications Medications: Current Medications Ketorolac Tromethamine (Toradol) 30 mg IVP Q6 [facility] Last Admin: 12/10/16 17:36 Dose: Not Given Oxycodone/Acetaminophen (Percocet 5/325 Mg Tab) 1 tab PO Q4H PRN PRN Reason: Pain, moderate (4-7) Stop: 12/12/16 18:25 Pantoprazole Sodium (Protonix Inj) 40 mg IVP DAILY [facility] Last Admin: 12/10/16 09:49 Dose: 40 mg Pneumococcal Polyvalent Vaccine (Pneumovax 23 Vaccine) 0.5 ml IM .ONCE ONE Stop: 12/11/16 10:01 Saccharomyces Boulardii (Florastor) 250 mg PO BID [facility] Last Admin: 12/10/16 17:36 Dose: 250 mg - Labs Labs: 12/10/16 07:03 12/10/16 07:03 PT 11.5 SECONDS (9.7-12.2) 12/10/16 12:44 INR 1.0 12/10/16 12:44 Attending/Attestation - Attestation I have personally seen and examined this patient.: Yes I have fully participated in the care of the patient.: Yes I have reviewed all pertinent clinical information, including history, physical exam and plan: Yes Notes (Text): Patient seen, examined, and case discussed with day-time resident. Patient denies acute symptoms except for pain which has improved over right middle finger. There is not erythema over the affect site, able to flex and contract the finger. Patient seen and evaluated by hand surgeon this morning as well. Patient completed hand xray over night and recommended for MRI per surgery. Assessment/Plan 1) Right Third Finger Felon * Hand surgery consult (Dr. Graves) on board * Hand Xray: no evidence of acute fracture or dislocation. No evidence of radiopaqure foreign body. Soft tissue swelling. * Per hand surgeon, Recommend MRI of the right hand which was completed in hospital. Discharge home with follow-up in the office. No emergent surgical intervention warranted. Patient will need to apply for everardo care and be set up for elective excision of finger tip of mass. He does not need antibiotics. * Per surgery, ordered for hand xray * Patient started on Zosyn 3.375 IV Q 8H and Vancomycin 1 gram IVPB Q Daily ( Active since 12/09/16) * EKG and chest xray as pre-operative for baseline * Chest xray (12/10/16): no active disease 2) Prophylaxis * SCDs b/l * GI ppx: Protonix 40mg IV daily
--- NOTE | 2016-12-10 08:54 | RAD ---
PROCEDURE: Right middle finger radiographs. HISTORY: pain r/o osteo COMPARISON: None. TECHNIQUE: AP radiograph of the right hand, as well as spot oblique and lateral images of right middle finger were obtained. FINDINGS: RIGHT MIDDLE FINGER: Right middle finger normal, without fracture of focal lesion. Remainder of the right hand (as seen on the AP view) grossly unremarkable. JOINTS: Normal. SOFT TISSUES: Soft tissue swelling and small defect in the skin seen at the distal portion of the middle finger. OTHER FINDINGS: None. IMPRESSION: No evidence of acute fracture or dislocation. No evidence of radiopaque foreign body. Soft tissue swelling.
[2016-12-10 09:35] LABS: NEUTROPHIL 85 % (50-75); TOTAL CELLS COUNTED 100
[2016-12-10] MEDS: Saccharomyces Boulardi 250 mg Cap PO SCH ×2 (09:49→17:36)
--- NOTE | 2016-12-10 10:01 | CP.PCM.PN ---
Subjective - Date & Time of Evaluation Date of Evaluation: 12/10/16 Time of Evaluation: 06:45 - Subjective Subjective: Hand surgery Dr. Graves Pt S&E @bedside. NAEO. pain controlled w/ medication. denies F/C, N/V. limited ROM of finger 2/2 pain Objective - Vital Signs/Intake and Output Vital Signs (last 24 hours): Temp Pulse Resp BP Pulse Ox 98.1 F 50 L 20 108/70 98 12/10/16 07:00 12/10/16 07:00 12/10/16 07:00 12/10/16 07:00 12/10/16 07:00 Intake and Output: 12/10/16 12/10/16 06:59 18:59 Intake Total 790 Balance 790 - Medications Medications: Current Medications Piperacillin Sod/Tazobactam (Sod 3.375 gm/ Sodium Chloride) 100 mls @ 200 mls/ hr IVPB Q8H [facility] Last Admin: 12/10/16 04:06 Dose: 200 mls/hr Vancomycin/Sodium Chloride (Vancocin) 1 gm in 200 mls @ 133 mls/hr IVPB Q24H [facility] Stop: 12/15/16 20:01 Ketorolac Tromethamine (Toradol) 30 mg IVP Q6 [facility] Last Admin: 12/10/16 05:36 Dose: 30 mg Morphine Sulfate (Morphine) 4 mg IV Q4 PRN PRN Reason: severe pain Oxycodone/Acetaminophen (Percocet 5/325 Mg Tab) 1 tab PO Q4H PRN PRN Reason: Pain, moderate (4-7) Stop: 12/12/16 18:25 Pantoprazole Sodium (Protonix Inj) 40 mg IVP DAILY [facility] Last Admin: 12/10/16 09:49 Dose: 40 mg Saccharomyces Boulardii (Florastor) 250 mg PO BID [facility] Last Admin: 12/10/16 09:49 Dose: 250 mg - Labs Labs: 12/10/16 07:03 12/10/16 07:03 - Constitutional Appears: Non-toxic, No Acute Distress - Head Exam Head Exam: NORMAL INSPECTION - Eye Exam Eye Exam: Normal appearance - ENT Exam ENT Exam: Mucous Membranes Moist - Respiratory Exam Respiratory Exam: NORMAL BREATHING PATTERN. absent: Accessory Muscle Use, Respiratory Distress - Cardiovascular Exam Cardiovascular Exam: absent: Bradycardia, Tachycardia - GI/Abdominal Exam GI & Abdominal Exam: Soft. absent: Distended - Extremities Exam Additional comments: TTP of R 3rd distal phalange dressing c/d/i - Neurological Exam Neurological Exam: Alert, Awake, Oriented x3 - Psychiatric Exam Psychiatric exam: Normal Affect, Normal Mood - Skin Skin Exam: Dry, Normal Color, Warm Assessment and Plan - Assessment and Plan (Free Text) Assessment: 46 y/o M w/ R 3rd finger felon vs mass - recommend MRI w/ contrast - cont Pain management - start warm betadine soaks TID - no foreign body or osteo seen on xray - soft dressings PRN - cont medical management Pt seen and discussed w/ Dr. Ely Esteban DO PGY2
--- NOTE | 2016-12-10 10:30 | CP.PCM.PCO ---
Physician Communication Note - Physician Communication Note Physician Communication Note: Patient admitted for finger infection Assessment/Plan - Assessment and Plan (Free Text) Assessment: Patient denies any trauma, foreign body to finger. He was seen in ER 2 weeks ago for what appeared to be a felon. It was drained. He didn't take antibiotics or follow up in my office. He returned 3 more times to the ER with the reason that he can't make it to the clinic or to my office. Each time, he has another I &D and packing of the volar finger tip. He comes in complaining of excruciating pain to the finger. PE: There is no erythem cellulitis fluctulence or drainage from the right long finger tip. There is full flexion and extension of the finger. There is no swelling to the finger or hand. There is a firm nodular mass which on the volar ulnar side of the long finger. There is no drainage or foul odor. Incision from I&D is clean Xray: normal bony structure with soft tissue swelling to tip. Plan: Patient with a distal finger tip solid mass. 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 Other differential includes giant cell tumor , ganglion cyst. It may have been recondarily infection previously, but currently not infected. Recomend MRI with contract of the hand Discharge home with follow up in the office. No emergent surgical intervention warranted. Patient will need to apply for everardo care and be set up for elective excision of the finger tip mass. He does not need antibtioics as out patient.
[2016-12-10] MEDS ORDERED: Gadodiamide 287 mg/ml 20 ml IV ONE (14:21)
[2016-12-10 15:36] VITALS: BP 113/67; PULSE 55; RESP 18; TEMP 98.6; O2SAT 100
--- NOTE | 2016-12-10 18:38 | MRI ---
PROCEDURE: MRI of the right hand with and without contrast HISTORY: tumor on right third digit COMPARISON: Comparison is made to the previous x-ray of the right hand dated 12/09/2016 TECHNIQUE: Axial coronal and sagittal MRI images of the right hand were obtained before and after IV contrast administration FINDINGS: There is heterogeneous soft tissue edema and swelling at the fall are aspect of distal 3rd finger. The postcontrast images demonstrate 7.2 by 5 millimeter collection in this soft tissue swelling. Findings suggestive of soft tissue infection/inflammation and small abscess formation. Adjacent soft tissue edema also noted at the level of the mid and distal phalanx of the 3rd finger. No evidence of bone marrow edema or cortical destruction to suggest acute osteomyelitis in this study. However the assessment is somewhat limited at the distal portion of the 3rd finger was at the edge of the field of view. The rest of the osseous structures in the right hand are also grossly unremarkable. Arthritic degenerative changes are noted at the metacarpophalangeal joints. IMPRESSION: Focal soft tissue swelling contains 7 x 5 millimeter collections seen at the volar aspect of the distal 3rd finger suggestive of soft tissue infection/ inflammation and small abscess formation. The assessment of the osseous structure at the distal 3rd finger is suboptimal in this study. No definite evidence of osteomyelitis. Mild arthritic changes. Preliminary report was submitted by [facility].
--- NOTE | 2016-12-10 19:18 | RAD ---
HISTORY: baseline ekg COMPARISON: No prior. FINDINGS: LUNGS: No active pulmonary disease. PLEURA: No significant pleural effusion identified, no pneumothorax apparent. CARDIOVASCULAR: Normal. OSSEOUS STRUCTURES: No significant abnormalities. VISUALIZED UPPER ABDOMEN: Normal. OTHER FINDINGS: None. IMPRESSION: No active disease.
[2016-12-10] MEDS ORDERED: Vancomycin 1 gm/NS 200 ml 1 GM/200 ML BAG IVPB SCH (20:00)
--- NOTE | 2016-12-10 20:48 | CP.PCM.DIS ---
Provider - Provider Date of Admission: 12/09/16 17:32 Attending physician: Alicia Gonzalez DO Consults: Hand surgery Time Spent in preparation of Discharge (in minutes): 31 Diagnosis - Discharge Diagnosis (1) Caridad Status: Chronic Hospital Course - Lab Results Lab Results: Most Recent Lab Values WBC 11.0 K/uL (4.8-10.8) H 12/10/16 07:03 RBC 4.46 Mil/uL (4.40-5.90) 12/10/16 07:03 Hgb 13.8 g/dL (12.0-18.0) 12/10/16 07:03 Hct 41.3 % (35.0-51.0) 12/10/16 07:03 MCV 92.5 fL (80.0-94.0) 12/10/16 07:03 MCH 31.0 pg (27.0-31.0) 12/10/16 07:03 MCHC 33.5 g/dL (33.0-37.0) 12/10/16 07:03 RDW 11.7 % (11.5-14.5) 12/10/16 07:03 Plt Count 187 K/uL (130-400) 12/10/16 07:03 MPV 9.9 fL (7.2-11.7) 12/10/16 07:03 Neut % (Auto) 85.7 % (50.0-75.0) H 12/10/16 07:03 Lymph % (Auto) 9.5 % (20.0-40.0) L 12/10/16 07:03 [place] % (Auto) 4.6 % (0.0-10.0) 12/10/16 07:03 Eos % (Auto) 0.0 % (0.0-4.0) 12/10/16 07:03 Baso % (Auto) 0.2 % (0.0-2.0) 12/10/16 07:03 Neut # 9.5 K/uL (1.8-7.0) H 12/10/16 07:03 Lymph # 1.0 K/uL (1.0-4.3) 12/10/16 07:03 [place] # 0.5 K/uL (0.0-0.8) 12/10/16 07:03 Eos # 0.0 K/uL (0.0-0.7) 12/10/16 07:03 Baso # 0.0 K/uL (0.0-0.2) 12/10/16 07:03 Neutrophils % (Manual) 85 % (50-75) H 12/10/16 07:03 Band Neutrophils % 1 % (0-2) 12/10/16 07:03 Lymphocytes % (Manual) 9 % (20-40) L 12/10/16 07:03 Monocytes % (Manual) 5 % (0-10) 12/10/16 07:03 Platelet Estimate Normal (NORMAL) 12/10/16 07:03 RBC Morphology Normal 12/10/16 07:03 PT 11.5 SECONDS (9.7-12.2) 12/10/16 12:44 INR 1.0 12/10/16 12:44 Sodium 134 mmol/L (132-148) 12/10/16 07:03 Potassium 4.4 mmol/L (3.6-5.2) 12/10/16 07:03 Chloride 102 mmol/L (98-107) 12/10/16 07:03 Carbon Dioxide 21 mmol/L (22-30) L 12/10/16 07:03 Anion Gap 15 (10-20) 12/10/16 07:03 BUN 16 mg/dL (9-20) 12/10/16 07:03 Creatinine 0.9 mg/dL (0.8-1.5) 12/10/16 07:03 Est GFR ( Amer) > 60 12/10/16 07:03 Est GFR (Non-Af Amer) > 60 12/10/16 07:03 POC Glucose (mg/dL) 88 mg/dL (65-110) 12/10/16 11:41 Random Glucose 106 mg/dL (75-110) 12/10/16 07:03 Calcium 8.8 mg/dl (8.6-10.4) 12/10/16 07:03 Total Bilirubin 0.9 mg/dL (0.2-1.3) 12/10/16 07:03 AST 32 U/L (17-59) 12/10/16 07:03 ALT 39 U/L (21-72) 12/10/16 07:03 Alkaline Phosphatase 57 U/L (38-126) 12/10/16 07:03 Total Protein 6.7 g/dL (6.3-8.3) 12/10/16 07:03 Albumin 3.6 g/dL (3.5-5.0) 12/10/16 07:03 Globulin 3.1 gm/dL (2.2-3.9) 12/10/16 07:03 Albumin/Globulin Ratio 1.1 (1.0-2.1) 12/10/16 07:03 - Hospital Course Hospital Course: CC: Third finger pain, infection 46 M presents with third finger, which has been hurting for one week. Patient states he had a surgery three times for the finger infection with packing Patient showed pictures of the finger after the surgery and before the surgery. Patient denies any known trauma to the finger. Patient doesn't remember cutting the finger. Upon review of history, it was noted that patient was given a finger block in the ED about 6pm. Patient had only taken one dose of antibiotics and has been non-compliant with treatment. Patient denies Fever, chills, nausea, vomiting, decreased movement of hand. 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 Patient is homeless. Patient admits to ETOH use and smoking history, but denies illicit drug use PSH: appendectomy, right forearm tendon repair with "micro laser therapy" 10 years ago and left ankle repair with bone removal (20 years ago) Medications: none except for antibiotics Patient seen during hospitalization. Hand surgeon consulted on the case. Patient completed imaging including hand xray and MRI during hospitalization. Discharge Diagnoses: 1) Right Third Finger Felon * Hand surgery consult (Dr. Graves) on board * Hand Xray: no evidence of acute fracture or dislocation. No evidence of radiopaqure foreign body. Soft tissue swelling. * Per surgeon, Recommend MRI of the right hand which was completed in hospital. Discharge home with follow-up in the office. No emergent surgical intervention warranted. Patient will need to apply for everardo care and be set up for elective excision of finger tip of mass. He does not need antibiotics. * Patient started on Zosyn 3.375 IV Q 8H and Vancomycin 1 gram IVPB Q Daily ( Active since 12/09/16)-->no antibiotics upon discharge per surgery * EKG and chest xray as pre-operative for baseline * Chest xray (12/10/16): no active disease Patient medically stable for discharge. Patient recommended to follow-up in the [facility] and provided office number of the hand surgeon to follow-up. Patient verbalized and understands the plan. This is a summary of patient's hospitalization. Please see EMR for further details. - Date & Time of H&P Date of H&P: 12/09/16 Time of H&P: 18:03 Discharge Exam - Head Exam Head Exam: NORMAL INSPECTION - Eye Exam Eye Exam: EOMI, PERRL. absent: Nystagmus, Scleral icterus Pupil Exam: NORMAL ACCOMODATION - ENT Exam ENT Exam: Mucous Membranes Moist - Respiratory Exam Respiratory Exam: Clear to PA & Lateral, NORMAL BREATHING PATTERN. absent: Decreased Breath Sounds, Rales, Rhonchi, Wheezes - Cardiovascular Exam Cardiovascular Exam: RRR, +S1, +S2 - GI/Abdominal Exam GI & Abdominal Exam: Normal Bowel Sounds, Soft. absent: Diminished Bowel Sounds , Distended, Firm, Guarding, Rebound, Rigid, Tenderness - Extremities Exam Extremities exam: normal capillary refill, pedal pulses present Additional comments: Hand: radial pulses intact bilateral Sensation intact bilateral hands Right hand: middle third finger, no erythema, no drainage, swelling subsided, sensation present, and able to flex and extend at the finger B/L Lower extremities: no cyanosis, no clubbing, no edema b/l - Back Exam Back exam: absent: CVA tenderness (L), CVA tenderness (R) - Neurological Exam Neurological exam: Alert, Oriented x3 - Skin Skin Exam: Dry, Intact, Normal Color, Warm Additional comments: tattoos Discharge Plan - Follow Up Plan Condition: STABLE Disposition: HOME/ ROUTINE Instructions: Abscess (GEN) Additional Instructions: Pt stable for discharge per Dr. Gonzalez. Patient may resume his home medications. He has been given prescriptions for the following medications: NONE Patient is to follow up at his PMD in the clinic, this week, for pre-operative clearance. He should follow up with hand surgeon, Dr. Graves, in her office within one week. Patient is to return to the ED if symptoms return or worsen. He was given these instructions at bedside. He verbalized his understanding to these instructions and agreed. Prescribed medications: NONE Dr. Graves Office Information: [phone] [place] [address] Referrals: Laura Graves MD [Staff Provider] - [facility] at [facility] [Outside]
[2016-12-11] MEDS ORDERED: Pneumococcal 23-Valent Vaccine IM ONE (10:00)
[2016-12-12] MEDS ORDERED: Influenza Vaccine 60 mcg/0.5 mL SYR (4YR UP) IM ONE (10:00)
--- NOTE | 2016-12-12 12:50 | CARD ---
APPROVED REPORT EKG Measurement Heart [id number] <Conclusion> Sinus bradycardia Otherwise normal ECG
== END 2016-12-10 19:00 | disposition home or self-care (01) ==
LOC: C.ER 15:39 → C.9E 17:32 → C.6T 18:16
PROVIDERS: ADMIT Hospitalist; ATTEND Hospitalist
DX: L03.011 Cellulitis of right finger (principal); I10 Essential (primary) hypertension; I25.10 Atherosclerotic heart disease of native coronary artery without angina pectoris; Z72.0 Tobacco use; Z59.0 Homelessness; Z91.19 Patient's noncompliance with other medical treatment and regimen
CPT/HCPCS: 26010; 36415; 71010; 73140; 73223; 80048; 80053; 82948; 85025; 85610; 87040; 96360; 96365; 96366; 96374; 99284; C9113; G0378; J0696; J1885; J2543; J2930; J3370; J7040; J7050

== ENCOUNTER 2017-01-31 08:23 | Emergency (ER) | payer MEDICAID, OTHER ==
[2017-01-31 08:24] VITALS: BMI 27.7
[2017-01-31 08:33] VITALS: TEMP 97.9; O2SAT 99
[2017-01-31] MEDS ORDERED: Lidocaine 2% Inj (20ml) INFIL STA (08:55)
--- NOTE | 2017-01-31 08:56 | C.PDOC ---
History Of Present Illness 46 year old male presents to the ED for evaluation of swollen right 3rd finger that has been going on for the past 2 weeks. Patient states he has been to the ED for the same procedure 3/4 times, but this time the finger is swollen and pain is unbearable. Patient reports he has not been able to follow with a hand doctor or PMD, but recently obtained Medicare. Patient denies any other physical complaint at the time. Chief Complaint (Nursing): Abnormal Skin Integrity History Per: Patient History/Exam Limitations: no limitations Onset/Duration Of Symptoms: Days Current Symptoms Are (Timing): Still Present Location Of Injury: Right: Hand (3rd finger), Anterior: Hand Quality Of Symptoms: Painful, Swollen Recent travel outside of the [place]: No Additional History Per: Patient Past Medical History Reviewed: Historical Data, Nursing Documentation, Vital Signs Vital Signs: Last Vital Signs Temp 97.9 F 01/31/17 08:28 Pulse 76 01/31/17 10:10 Resp 18 01/31/17 10:10 BP 115/75 01/31/17 10:10 Pulse Ox 99 01/31/17 10:13 - Medical History PMH: CAD, HTN Denies: Depression, Chronic Kidney Disease Surgical History: Appendectomy - [facility] Procedures IMMOBILIZ/WOUND ATTN NEC (03/06/02) INJECT/INFUSE NEC (06/26/12) OTHER APPENDECTOMY (11/19/04) OTHER NEUROPLASTY (04/06/98) Family History: States: Unknown Family Hx - Social History Hx Tobacco Use: Yes Hx Alcohol Use: Yes Hx Substance Use: Yes - Immunization History Hx Tetanus Toxoid Vaccination: No Hx Influenza Vaccination: No Hx Pneumococcal Vaccination: No Review Of Systems Constitutional: Negative for: Fever, Chills Cardiovascular: Negative for: Chest Pain Respiratory: Negative for: Cough, Shortness of Breath Gastrointestinal: Negative for: Nausea, Vomiting, Abdominal Pain Skin: Positive for: Other (Swollen 3rd right finger) Neurological: Negative for: Weakness, Numbness Physical Exam - Physical Exam Appears: Non-toxic, No Acute Distress Skin: Normal Color, Warm, Dry Head: Atraumatic, Normacephalic Oral Mucosa: Moist Neck: Normal ROM, Supple Chest: Symmetrical Cardiovascular: Rhythm Regular, No Murmur Respiratory: Normal Breath Sounds, No Rales, No Rhonchi, No Wheezing Gastrointestinal/Abdominal: Soft, No Tenderness, No Guarding, No Rebound Extremity: Tenderness (Right 3rd finger ), No Calf Tenderness, Swelling (3rd right finger distal phalanx) Neurological/Psych: Oriented x3, Normal Speech, Normal Cognition Gait: Steady ED Course And Treatment O2 Sat by Pulse Oximetry: 99 (On RA) Pulse Ox Interpretation: Normal Medical Decision Making Medical Decision Making: Plan: * Lidocaine 2% 5 ml INFIL * I&D procedure Pt tolerated the procedure well, was given instructions to follow up with hand doctor or PMD for further evaluation. Pt was stable enough for d/c home and was prescribed antibiotics. Disposition - Disposition Referrals: Louis Cherry MD [Staff Provider] - Disposition: HOME/ ROUTINE Disposition Time: 09:20 Condition: IMPROVED Additional Instructions: Thank you for letting us take care of you today. The emergency medical care you received today was directed at your acute symptoms. If you were prescribed any medication, please fill it and take as directed. It may take several days for your symptoms to resolve. Return to the Emergency Department if your symptoms worsen, do not improve, or if you have any other problems. Please contact your doctor or call one of the physicians/clinics you have been referred to that are listed on the Patient Visit Information form that is included in your discharge packet. Bring any paperwork you were given at discharge with you along with any medications you are taking to your follow up visit. Our treatment cannot replace ongoing medical care by a primary care provider (PCP) outside of the emergency department. Thank you for allowing the [facility] team to be part of your care today. Take the antibiotics as prescribed. Follow up with Dr. Harsha Dumont in 1-2 days for re-evaluation and packing removal. Prescriptions: Cephalexin [cephalexin] 500 mg PO Q6 #28 cap oxyCODONE/Acetaminophen [Percocet 5/325 mg Tab] 1 ea PO Q6 PRN #10 tab PRN Reason: Pain, Severe (8-10) Sulfamethoxazole/Trimethoprim [Bactrim DS 800 mg-160 mg] 1 tab PO BID #14 tab Instructions: Acute Wound Care (ED) Forms: [employer] (Latvian) - Clinical Impression Clinical Impression: Felon - Scribe Statement The provider has reviewed the documentation as recorded by the Scribe Sunil Osorio All medical record entries made by the Scribe were at my direction and personally dictated by me. I have reviewed the chart and agree that the record accurately reflects my personal performance of the history, physical exam, medical decision making, and the department course for this patient. I have also personally directed, reviewed, and agree with the discharge instructions and disposition. Incision and Drainage - Time Time Performed: 09:45 - Time Out Time Out: Side verified, Site verified, Patient ID confirmed, Sterile procedures obs. - Consent obtained Consent obtained: Verbal - Performed by Performed by: Attending Physician - Indications Indications: Cutaneous abscess - Contraindications Contraindications: None - Location Location: Right, Distal, Finger abscess - Anesthetic Technique Anesthetic Technique: Topical - Anesthetic Anesthetic: Lidocaine 2% - Procedure Procedure: # scalpel used (11), Irrigated, Packed with sterile gauze - Post-procedure Post procedure: Dressed - Complications Complications: None - Patient tolerated procedure Patient tolerated procedure: Well
[2017-01-31] MEDS ORDERED: Lidocaine 2% Inj (20ml) ONE (09:03)
[2017-01-31] MEDS ORDERED: Tmp-Smz 800 mg-160 mg DS Tab PO STA (09:45)
[2017-01-31] MEDS ORDERED: Tmp-Smz 800 mg-160 mg DS Tab ONE (10:01)
[2017-01-31 10:13] VITALS: RESP 18
[2017-01-31 10:14] VITALS: BP 115/75; PULSE 76
== END 2017-01-31 10:13 | disposition home or self-care (01) ==
LOC: C.ER 08:23
DX: L03.011 Cellulitis of right finger (principal)

== ENCOUNTER 2017-03-13 23:46 | Emergency (ER) | payer OTHER ==
[2017-03-13 23:46] VITALS: BMI 27.7
[2017-03-14 00:14] VITALS: RESP 16; O2SAT 99
--- NOTE | 2017-03-14 00:35 | C.PDOC ---
History Of Present Illness Patient presents to the ER with a complaint of right great toe pain that has been worsening over the past few days. Patient reports pain when walking. Denies weakness or numbness. Time Seen by Provider: 03/14/17 00:34 Chief Complaint (Nursing): Lower Extremity Problem/Injury History Per: Patient History/Exam Limitations: no limitations Onset/Duration Of Symptoms: Hrs Current Symptoms Are (Timing): Still Present Severity: Mild Pain Scale Rating Of: 2 Recent travel outside of the [place]: No Past Medical History Reviewed: Historical Data, Nursing Documentation, Vital Signs Vital Signs: Last Vital Signs Temp 98.0 F 03/14/17 05:01 Pulse 56 L 03/14/17 05:01 Resp 16 03/14/17 05:01 BP 107/68 03/14/17 05:01 Pulse Ox 99 03/14/17 05:01 - Medical History PMH: CAD, HTN Surgical History: Appendectomy - [facility] Procedures IMMOBILIZ/WOUND ATTN NEC (03/06/02) INJECT/INFUSE NEC (06/26/12) OTHER APPENDECTOMY (11/19/04) OTHER NEUROPLASTY (04/06/98) Family History: States: No Known Family Hx - Social History Hx Tobacco Use: Yes Hx Alcohol Use: Yes Hx Substance Use: Yes - Immunization History Hx Tetanus Toxoid Vaccination: No Hx Influenza Vaccination: No Hx Pneumococcal Vaccination: No Review Of Systems Constitutional: Negative for: Fever, Chills Musculoskeletal: Positive for: Foot Pain Neurological: Negative for: Weakness, Numbness Physical Exam - Physical Exam Appears: Non-toxic Skin: Warm, Dry Head: Normacephalic Extremity: Capillary Refill (<2 seconds), No Deformity, Other (Right foot with erythema to base of phalanx of great toe) Pulses: Left Dorsalis Pedis: Normal, Right Dorsalis Pedis: Normal Neurological/Psych: Oriented x3 ED Course And Treatment O2 Sat by Pulse Oximetry: 99 (Room air) Pulse Ox Interpretation: Normal Progress Note: Motrin administered. Reevaluation Time: 05:23 Reassessment Condition: Improved Disposition Counseled Patient/Family Regarding: Studies Performed, Diagnosis, Need For Followup, Rx Given - Disposition Referrals: [facility] at [facility] [Outside] Disposition: HOME/ ROUTINE Disposition Time: 00:34 Condition: FAIR Prescriptions: Ibuprofen [Motrin Tab] 800 mg PO TID #20 tab Instructions: Gout (ED) Forms: [facility] (Upper Sorbian) - Clinical Impression Clinical Impression: Gout - Scribe Statement The provider has reviewed the documentation as recorded by the Scribe Willy Ball All medical record entries made by the Scribe were at my direction and personally dictated by me. I have reviewed the chart and agree that the record accurately reflects my personal performance of the history, physical exam, medical decision making, and the department course for this patient. I have also personally directed, reviewed, and agree with the discharge instructions and disposition.
[2017-03-14 05:03] VITALS: BP 107/68; PULSE 56; TEMP 98
== END 2017-03-14 05:44 | disposition home or self-care (01) ==
LOC: C.ER 23:46
DX: M10.9 Gout, unspecified (principal)

== ENCOUNTER 2017-06-06 08:01 | Emergency (ER) | payer OTHER ==
[2017-06-06 08:01] VITALS: BMI 27.7
[2017-06-06 08:07] VITALS: RESP 18; O2SAT 100
--- NOTE | 2017-06-06 09:44 | CP.PCM.CON ---
History of Present Illness - History of Present Illness History of Present Illness: Hand Surgery Consult for Dr. Karina Monteiro PGY-1 Pt S & E at bedside. 46M with PMH of HTN consulted for Right Middle Swollen Finger x 3 days. He states that this is not the first incident. Pt was seen 5 months ago for similar complaint and an Incision and Drainage was performed. He rates the pain as a 10/10 with radiation down the finger into the distal portion of his hand. Admits to associated numbness, tingling, and weakness in the right hand. Denies fevers, chills, chest pain, palpitations, SOB, cough, nausea, vomiting, diarrhea , and constipation. PMH: HTN PSH: Left Leg Surgery with Norman Placement, Right Arm Surgery with Norman Placement, Appendectomy All: NKDA SH: Admits to tobacco use- 3 cigarettes daily, Admits to Social EtOh use- #2-5 on weekends, Admits to daily Marijuana use Review of Systems - Review of Systems All systems: reviewed and no additional remarkable complaints except - Constitutional Constitutional: absent: Chills, Fever - EENT Nose/Mouth/Throat: absent: Sore Throat - Cardiovascular Cardiovascular: absent: Chest Pain, Palpitations - Respiratory Respiratory: absent: Cough - Gastrointestinal Gastrointestinal: absent: Constipation, Diarrhea, Nausea, Vomiting - Integumentary Integumentary: absent: Swelling Past Patient History - Past Medical History & Family History Past Medical History?: Yes - Past Social History Smoking Status: Light Smoker < 10 Cigarettes Daily - CARDIAC Hx Hypertension: Yes - PULMONARY Hx Respiratory Disorders: No - NEUROLOGICAL Hx Neurological Disorder: No - HEENT Hx HEENT Problems: No - RENAL Hx Chronic Kidney Disease: No - ENDOCRINE/METABOLIC Hx Endocrine Disorders: No - HEMATOLOGICAL/ONCOLOGICAL Hx Blood Disorders: No - INTEGUMENTARY Hx Dermatological Problems: Yes Other/Comment: rt 3rd finger abcess 2 months ago - MUSCULOSKELETAL/RHEUMATOLOGICAL Hx Musculoskeletal Disorders: No - GASTROINTESTINAL Other/Comment: AP - GENITOURINARY/GYNECOLOGICAL Hx Genitourinary Disorders: No - PSYCHIATRIC Hx Depression: No Hx Substance Use: Yes - SURGICAL HISTORY Hx Appendectomy: Yes Hx Orthopedic Surgery: Yes - ANESTHESIA Hx Anesthesia: Yes Hx Anesthesia Reactions: No Meds Home Medications: Home Medication List Medication Instructions Recorded Confirmed Type Clindamycin [Cleocin] 300 mg PO QID #28 cap 06/06/17 Rx Ibuprofen [Motrin] 600 mg PO Q6 PRN #20 tab 06/06/17 Rx Allergies/Adverse Reactions: Allergies Allergy/AdvReac Type Severity Reaction Status Date / Time No Known Allergies Allergy Verified 06/06/17 08:02 Physical Exam - Constitutional Appears: Non-toxic, No Acute Distress - Head Exam Head Exam: ATRAUMATIC, NORMAL INSPECTION, NORMOCEPHALIC - Eye Exam Eye Exam: EOMI, Normal appearance - ENT Exam ENT Exam: Mucous Membranes Moist, Normal Exam - Neck Exam Neck exam: Positive for: Full Rom, Normal Inspection - Respiratory Exam Respiratory Exam: NORMAL BREATHING PATTERN - Cardiovascular Exam Cardiovascular Exam: REGULAR RHYTHM, +S1, +S2 - GI/Abdominal Exam GI & Abdominal Exam: Soft. absent: Distended - Extremities Exam Extremities exam: Positive for: tenderness (Right Third Digit) Additional comments: Swelling and Erythema of Right Third Digit at Distal Aspect - Neurological Exam Neurological exam: Alert, CN II-XII Intact, Oriented x3 - Psychiatric Exam Psychiatric exam: Normal Affect, Normal Mood - Skin Skin Exam: Dry, Intact, Normal Color, Warm Additional comments: See Extremity Exam for Right Third Digit Findings Results - Vital Signs Recent Vital Signs: Last Vital Signs Temp 97.9 F 06/06/17 08:04 Pulse 60 06/06/17 08:04 Resp 18 06/06/17 08:04 BP 103/67 06/06/17 08:04 Pulse Ox 100 06/06/17 08:04 Assessment & Plan - Assessment and Plan (Free Text) Assessment: 46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 Dressing applied. )
[2017-06-06] MEDS ORDERED: Bupivacaine 0.25% Inj(30mL) IJ ONE (09:53)
[2017-06-06] MEDS ORDERED: Lidocaine 1% PF (5ml) Amp INJ ONE (10:00)
[2017-06-06] MEDS ORDERED: Clindamycin 300 MG in Sodium Chloride 0.9% 50 ML IVPB ONE (10:15)
[2017-06-06] MEDS ORDERED: Lidocaine Hydrochloride 5 ML INJ ONE (10:20)
[2017-06-06 11:16] VITALS: BP 122/75; TEMP 98
[2017-06-06 11:22] VITALS: PULSE 60
--- NOTE | 2017-06-06 11:25 | C.PDOC ---
History Of Present Illness 46yo male, with PMH HTN presents to ED with complaints of swelling to his right 3rd finger for the past 4 days. 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 Patient states he has a history of I&D to his right 3rd finger, performed in December 2016. Patient was instructed to follow up with a hand specialist which he has not done. He currently denies any fever, injury or trauma to his hand, weakness, numbness. Time Seen by Provider: 06/06/17 08:08 Chief Complaint (Nursing): Abnormal Skin Integrity History Per: Patient History/Exam Limitations: no limitations Onset/Duration Of Symptoms: Days (4) Current Symptoms Are (Timing): Still Present Quality: "Pain" Past Medical History Reviewed: Historical Data, Nursing Documentation, Vital Signs Vital Signs: Last Vital Signs Temp 98.0 F 06/06/17 11:17 Pulse 60 06/06/17 11:21 Resp 18 06/06/17 11:17 BP 122/75 06/06/17 11:17 Pulse Ox 100 06/06/17 13:42 - Medical History PMH: CAD, HTN Denies: Depression, Chronic Kidney Disease Surgical History: Appendectomy - [facility] Procedures IMMOBILIZ/WOUND ATTN NEC (03/06/02) INJECT/INFUSE NEC (06/26/12) OTHER APPENDECTOMY (11/19/04) OTHER NEUROPLASTY (04/06/98) Family History: States: Unknown Family Hx - Social History Hx Tobacco Use: Yes Hx Alcohol Use: Yes Hx Substance Use: Yes - Immunization History Hx Tetanus Toxoid Vaccination: No Hx Influenza Vaccination: No Hx Pneumococcal Vaccination: No Review Of Systems Except As Marked, All Systems Reviewed And Found Negative. Constitutional: Negative for: Fever, Chills Musculoskeletal: Positive for: Hand Pain (right 3rd finger swelling) Neurological: Negative for: Weakness, Numbness Physical Exam - Physical Exam Appears: Non-toxic, No Acute Distress Skin: Warm, Dry Head: Atraumatic, Normacephalic Eye(s): bilateral: Normal Inspection, EOMI Nose: Normal Oral Mucosa: Moist Neck: Normal ROM, Supple Chest: Symmetrical Respiratory: No Accessory Muscle Use Extremity: Normal ROM, Tenderness (Tenderness, swelling and mild erythema to the pad of right 3rd phalanx. ), Capillary Refill (<2 sec), No Deformity, Swelling Pulses: Right Radial: Normal Neurological/Psych: Oriented x3, Normal Motor, Normal Sensation (distal sensations intact) ED Course And Treatment O2 Sat by Pulse Oximetry: 100 (RA) Pulse Ox Interpretation: Normal Progress Note: Case discussed with surgical rn Dr. Monteiro who performed I&D at bedside. Patient given instructions on wound care and informed to follow upw ith Dr. Collins in his office. Disposition - Disposition Referrals: Terrence Collins MD [Staff Provider] - Disposition: HOME/ ROUTINE Disposition Time: 20:00 Condition: STABLE Additional Instructions: Wound check in 2 days . follow up with Dr collins as soon as possible. Prescriptions: Clindamycin [Cleocin] 300 mg PO QID #28 cap Ibuprofen [Motrin] 600 mg PO Q6 PRN #20 tab PRN Reason: Pain, Mild (1-3) Instructions: Abscess Incision and Drainage (DC) Forms: [employer] (Citizen [place]) - Clinical Impression Clinical Impression: Felon - PA / SERVICE TRAINER / Resident Statement MD/DO has reviewed & agrees with the documentation as recorded. - Scribe Statement The provider has reviewed the documentation as recorded by the Scribe (Nori Oconnor) Provider Attestation: All medical record entries made by the Scribe were at my direction and personally dictated by me. I have reviewed the chart and agree that the record accurately reflects my personal performance of the history, physical exam, medical decision making, and the department course for this patient. I have also personally directed, reviewed, and agree with the discharge instructions and disposition.
== END 2017-06-06 11:24 | disposition home or self-care (01) ==
LOC: C.ER 08:01
DX: L03.011 Cellulitis of right finger (principal)

== ENCOUNTER 2017-06-09 08:03 | Emergency (ER) | payer OTHER ==
[2017-06-09 08:15] VITALS: BMI 27.0
--- NOTE | 2017-06-09 10:12 | C.PDOC ---
History Of Present Illness 46-year-old male, presents to the emergency department with complaints of retained foreign body in right third digit. Patient seen in ED several days ago abx foloow up surgeon hand r 3 digit volar asp r distal third no drainage or erythea Time Seen by Provider: 06/09/17 08:21 Chief Complaint (Nursing): Finger,Hand,&Wrist PMH - Medical History PMH: Denies: Neuro Disorder, HEENT Problems, Resp Disorders, MS Disorders - Family History Family History: States: Unknown Family Hx - Immunization History Hx Tetanus Toxoid Vaccination: No Hx Influenza Vaccination: Yes Hx Pneumococcal Vaccination: No ED Course And Treatment O2 Sat by Pulse Oximetry: 99 (RA) Pulse Ox Interpretation: Normal Medical Decision Making Medical Decision Making: Prior Visits Notes and records from previous visits were reviewed. Patient seen in ED for Disposition - Disposition Referrals: [facility] [Outside] Disposition: HOME/ ROUTINE Disposition Time: 10:12 Condition: GOOD Additional Instructions: Follow up with the surgeon on Monday in 2 days. Return if worsened. Prescriptions: Doxycycline Hyclate 100 mg PO BID #20 capsule traMADol [Ultram] 50 mg PO Q6 PRN #15 tab PRN Reason: Pain Instructions: Foreign Body in Skin (DC) Forms: [facility] (Azeri) - Clinical Impression Clinical Impression: Foreign body (FB) in soft tissue
[2017-06-09 10:36] VITALS: BP 119/81; PULSE 60; RESP 16; TEMP 98.5
[2017-06-09 13:52] VITALS: O2SAT 100
--- NOTE | 2017-06-09 13:54 | C.PDOC ---
History Of Present Illness 46-year-old male, PMHx includes retained foreign body in right third digit, presents to the emergency department with complaints of pain to the third finger on right hand. Patient also reports he is taking Clindamycin and it is causing him to have episodes of watery diarrhea. Patient is taking Motrin for pain with minimal relief. No other complaints at this time. Time Seen by Provider: 06/09/17 08:21 Chief Complaint (Nursing): Finger,Hand,&Wrist History Per: Patient History/Exam Limitations: no limitations Onset/Duration Of Symptoms: Days Current Symptoms Are (Timing): Still Present Past Medical History Reviewed: Historical Data, Nursing Documentation, Vital Signs Vital Signs: Last Vital Signs Temp 98.5 F 06/09/17 10:35 Pulse 60 06/09/17 10:35 Resp 16 06/09/17 10:35 BP 119/81 06/09/17 10:35 Pulse Ox 100 06/09/17 13:54 - Medical History PMH: CAD, HTN Surgical History: Appendectomy - [facility] Procedures IMMOBILIZ/WOUND ATTN NEC (03/06/02) INJECT/INFUSE NEC (06/26/12) OTHER APPENDECTOMY (11/19/04) OTHER NEUROPLASTY (04/06/98) Family History: States: No Known Family Hx - Social History Hx Tobacco Use: Yes Hx Alcohol Use: Yes Hx Substance Use: Yes - Immunization History Hx Tetanus Toxoid Vaccination: No Hx Influenza Vaccination: Yes Hx Pneumococcal Vaccination: No Review Of Systems Constitutional: Negative for: Fever, Chills Gastrointestinal: Positive for: Diarrhea. Negative for: Nausea, Vomiting Musculoskeletal: Positive for: Hand Pain (right third finger) Neurological: Negative for: Weakness, Numbness Physical Exam - Physical Exam Appears: Non-toxic, No Acute Distress Skin: Warm, Dry, No Rash Head: Normacephalic Eye(s): bilateral: PERRL Nose: Normal Oral Mucosa: Moist Lips: Normal Appearing Neck: Normal ROM Extremity: Other (Tenderness to volar aspect of distard third digit on right hand. No drainage or erythema) Pulses: Left Radial: Normal, Right Radial: Normal Neurological/Psych: Oriented x3, Normal Speech ED Course And Treatment O2 Sat by Pulse Oximetry: 100 (RA) Pulse Ox Interpretation: Normal Medical Decision Making Medical Decision Making: Prior Visits Notes and records from previous visits were reviewed. Patient seen in ED on 06/06 for infection to 3rd digit of right upper extremity. Patient had I&D of area and was discharged with Rx for Clinda and f/u with hand surgeon. Disposition - Disposition Referrals: [facility] [Outside] Disposition: HOME/ ROUTINE Condition: GOOD Additional Instructions: Follow up with the surgeon on Monday in 2 days. Return if worsened. Prescriptions: Doxycycline Hyclate 100 mg PO BID #20 capsule traMADol [Ultram] 50 mg PO Q6 PRN #15 tab PRN Reason: Pain Instructions: Foreign Body in Skin (DC) Forms: [employer] (Lithuanian) - Clinical Impression Clinical Impression: Foreign body (FB) in soft tissue - Scribe Statement The provider has reviewed the documentation as recorded by the Scribe (Marco galeano) All medical record entries made by the Scribe were at my direction and personally dictated by me. I have reviewed the chart and agree that the record accurately reflects my personal performance of the history, physical exam, medical decision making, and the department course for this patient. I have also personally directed, reviewed, and agree with the discharge instructions and disposition.
== END 2017-06-09 10:35 | disposition home or self-care (01) ==
LOC: C.ER 08:03
DX: S60.452A Superficial foreign body of right middle finger, initial encounter (principal); X58.XXXA Exposure to other specified factors, initial encounter

== ENCOUNTER 2017-06-11 06:43 | Emergency (ER) | payer OTHER ==
[2017-06-11 06:44] VITALS: BMI 27.7
--- NOTE | 2017-06-11 07:18 | C.PDOC ---
History Of Present Illness 46 yo male c/o right middle finger pain for one week. Pt was evaluated in [facility] on 06/06/17, I&D was preformed and he was given abx. On 06/09/17, he was reevaluated , antibiotic was switch to doxycycline. Today pt notes his finger "exploded" with "pus coming out." No fevers. No change in sensation. 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 Time Seen by Provider: 06/11/17 07:06 Chief Complaint (Nursing): Upper Extremity Problem/Injury History Per: Patient History/Exam Limitations: no limitations Onset/Duration Of Symptoms: Days Current Symptoms Are (Timing): Still Present Quality: "Pain" Past Medical History Vital Signs: Last Vital Signs Temp 97.9 F 06/11/17 09:29 Pulse 62 06/11/17 09:29 Resp 16 06/11/17 09:29 BP 110/65 06/11/17 09:29 Pulse Ox 98 06/11/17 09:29 - Medical History PMH: CAD, HTN Denies: Depression, Chronic Kidney Disease Surgical History: Appendectomy - [facility] Procedures IMMOBILIZ/WOUND ATTN NEC (03/06/02) INJECT/INFUSE NEC (06/26/12) OTHER APPENDECTOMY (11/19/04) OTHER NEUROPLASTY (04/06/98) Family History: States: Unknown Family Hx - Social History Hx Tobacco Use: Yes Hx Alcohol Use: Yes Hx Substance Use: Yes - Immunization History Hx Tetanus Toxoid Vaccination: No Hx Influenza Vaccination: Yes Hx Pneumococcal Vaccination: No Review Of Systems Except As Marked, All Systems Reviewed And Found Negative. Musculoskeletal: Positive for: Hand Pain Physical Exam - Physical Exam Appears: Well, Non-toxic, No Acute Distress Skin: Warm, Dry Head: Atraumatic, Normacephalic Eye(s): bilateral: Normal Inspection, EOMI Nose: Normal Oral Mucosa: Moist Neck: Normal ROM, Supple Chest: Symmetrical Respiratory: No Accessory Muscle Use Extremity: Normal ROM, Other ((+) swelling and tenderness to the right 3rd digit distally, no streaking. (+) 1 cm open linear wound) ED Course And Treatment O2 Sat by Pulse Oximetry: 96 Progress Note: Pt was seen and evaluated by neurosurgical physician assistant, Dr Aaron, who evaluated the pt at bedside. Dr Aaron notes pt can be discharged with f/u with hand specialist tomorrow as scheduled. Disposition - Disposition Disposition: HOME/ ROUTINE Disposition Time: 09:03 Condition: STABLE Additional Instructions: Follow up with hand specialist as scheduled tomorrow. Continue the antibiotics. Instructions: Wound Care (DC) Forms: [facility] (Botswanan) - Clinical Impression Clinical Impression: Abscess re-check
[2017-06-11] MEDS ORDERED: Oxycodone/Acetaminophen 5/325 mg Tab PO STA (07:58)
[2017-06-11] MEDS ORDERED: Oxycodone/Acetaminophen 5/325 mg Tab ONE (08:07)
[2017-06-11] MEDS ORDERED: Lidocaine Hydrochloride 5 ML INJ ONE (08:54)
[2017-06-11] MEDS ORDERED: Lidocaine 1% Inj (20ml) INFIL STA (09:23)
[2017-06-11 09:30] VITALS: BP 110/65; PULSE 62; RESP 16; TEMP 97.9
[2017-06-11 13:41] VITALS: O2SAT 96
== END 2017-06-11 09:37 | disposition home or self-care (01) ==
LOC: C.ER 06:43
DX: Z51.89 Encounter for other specified aftercare (principal)